=== PATIENT | male | born 1990 | race African-American/Black ===

== ENCOUNTER 2025-03-10 13:15 | Emergency (ER) | payer OTHER ==
[2025-03-10] MEDS ORDERED: Ketorolac Tromethamine 30 MG (1 mL) VIAL ONE (15:48)
[2025-03-10] MEDS ORDERED: Orphenadrine Citrate 60 MG/2 ML VIAL ONE (15:49)
== END 2025-03-10 16:23 | disposition home or self-care (01) ==
LOC: ERS 13:15
DX: S79.921A Unspecified injury of right thigh, initial encounter (principal); X58.XXXA Exposure to other specified factors, initial encounter; Y93.02 Activity, running
CPT/HCPCS: 96372; J1885; J2360